=== PATIENT | male | born 1980 | race Caucasian/White ===

== ENCOUNTER → 2024-03-21 | Outpatient (CLI) | LOC: M SOG 07:28 | PROVIDERS: ATTEND Physician Assistant | DX: M79.644 Pain in right finger(s) (principal) ==

== ENCOUNTER 2025-04-02 23:21 | Emergency (ER) | payer OTHER ==
[~2025-04-02] VITALS: Ht 182.9 cm; Wt 113.9 kg
[2025-04-02] MEDS ORDERED: ISOVUE-370 76% 100 ML VIAL As Ordered ONE (23:30)
[2025-04-03] MEDS ORDERED: VALT500T PO (00:01)
[2025-04-03] MEDS ORDERED: MULTTAB86 PO (00:01)
[2025-04-03 00:10] LABS: INR 0.93
[2025-04-03 00:11] LABS: BASO # 0.1 10^3/uL (0.0-0.2); BASO % 0.6 % (0.0-1.0); EOS # 0.1 10^3/uL (0.0-0.5); EOS % 1.3 % (0.0-3.0); LYMPH # 1.3 10^3/uL (1.5-5.0); LYMPH % 16.6 % (24.0-44.0); MONO # 0.2 10^3/uL (0.0-0.8); MONO % 2.5 % (2.0-8.0); NEUTROPHILS # 6.1 10^3/uL (1.5-8.5); NEUTROPHILS % 78.6 % (36.0-66.0); PLATELET COUNT, AUTOMATED 196 10^3/uL (150-450)
[2025-04-03 00:17] LABS: CALCIUM LEVEL 8.9 MG/DL (8.5-10.1); CARBON DIOXIDE LEVEL 27.0 MMOL/L (20-31); CHLORIDE LEVEL 103.0 MMOL/L (98-107); CREATININE FOR GFR 1.22 MG/DL (0.70-1.30); GLOMERULAR FILTRATION RATE 75.4 (>60); MAGNESIUM LEVEL 2.0 MG/DL (1.8-2.4); POTASSIUM SERUM 3.8 MMOL/L (3.5-5.1); SODIUM LEVEL 137.0 MMOL/L (136-145)
[2025-04-03] MEDS ORDERED: TESTOSTERONE (00:55)
[2025-04-03 07:15] VITALS: BP 130/68; TEMP 96.9; O2SAT 96
== END 2025-04-03 07:23 | disposition home or self-care (01) ==
LOC: M ED 23:21
DX: R20.2 Paresthesia of skin (principal); I67.2 Cerebral atherosclerosis; Z91.09 Other allergy status, other than to drugs and biological substances; Z79.2 Long term (current) use of antibiotics; Z79.810 Long term (current) use of selective estrogen receptor modulators (SERMs)
CPT/HCPCS: 36415; 70450; 70496; 70498; 71045; 80047; 80048; 82330; 83735; 85025; 85610; 85730; 87486; 87581; 87633; 87798; 93005; 93041; 94760; 99285; Q9967